=== PATIENT | female | born 1940 | race Caucasian/White ===

== ENCOUNTER → 2024-04-04 | Emergency (ER) | payer OTHER ==
[~2024-04-04] VITALS: Ht 160 cm; Wt 59.4 kg
[~2024-04-04] MED LIST: METO-357 PO; METOPROLOL SUCCINATE 25 MG TAB.SR.24H ONE; METOPROLOL TARTRATE INJ 5 MG/5 ML AMPUL ONE
[2024-04-04 16:28] LABS: BASOPHILS # (AUTO) 0.1 K/uL (0.0-0.2); BASOPHILS % (AUTO) 0.7 % (0.0-2.0); EOSINOPHILS % (AUTO) 0.2 % (0.0-6.0); HEMATOCRIT 40 % (33-45); HEMOGLOBIN 13.6 g/dL (11.5-14.8); LYMPHOCYTES # (AUTO) 0.9 K/uL (0.8-4.8); LYMPHOCYTES % (AUTO) 10.7 % (20.0-44.0); MEAN CORPUSCULAR HEMOGLOBIN 33 PG (26.0-33.0); MEAN CORPUSCULAR HGB CONC 34 g/dl (31.0-36.0); MEAN CORPUSCULAR VOLUME 97 fL (82-100); MONOCYTES # (AUTO) 0.8 K/uL (0.1-1.30); MONOCYTES % (AUTO) 9.6 % (2.0-12.0); NEUTROPHILS # (AUTO) 6.5 K/uL (1.8-8.9); NEUTROPHILS % (AUTO) 78.8 % (43.0-81.0); PLATELET COUNT (AUTO) 291 K/uL (150-450); RED BLOOD CELL COUNT(AUTO) 4.15 MIL/uL (4.0-5.2); RED CELL DISTRIBUTION WIDTH 13.3 % (11.5-15.0); WHITE BLOOD COUNT (AUTO) 8.2 K/uL (4.3-11.0)
[2024-04-04] MEDS: METOPROLOL TARTRATE INJ 5 MG/5 ML AMPUL IV ONE (16:30)
[2024-04-04] MEDS: METOPROLOL SUCCINATE 50 MG TAB.SR.24H PO SCH (16:31)
[2024-04-04 16:41] LABS: CALCIUM, SERUM 9.6 mg/dL (8.5-10.1); CARBON DIOXIDE 25 mmol/L (21-32); CHLORIDE 103 mmol/L (98-107); CREATININE 0.7 mg/dL (0.6-1.3); GLUCOSE 128 mg/dL (74-106); POTASSIUM 3.2 mmol/L (3.5-5.1); SODIUM SERUM 141 mmol/L (136-145); UREA NITROGEN, BLOOD 17 mg/dL (7-18)
[2024-04-04 18:05] VITALS: BP 132/97; TEMP 98.8; O2SAT 98
== END | disposition home or self-care (01) ==
LOC: ER 15:48
DX: I48.20 Chronic atrial fibrillation, unspecified (principal); R00.2 Palpitations; I10 Essential (primary) hypertension; Z91.148 Patient's other noncompliance with medication regimen for other reason
CPT/HCPCS: 99285; 96374; 71045; 93005 ×3; 85025; 80048; 36415; 84484; 83880; J3490

== ENCOUNTER 2025-01-18 15:24 | Emergency (ER) | payer OTHER ==
[~2025-01-18] VITALS: Ht 160 cm; Wt 59.0 kg
[~2025-01-18 15:24] MED LIST changes: -METOPROLOL SUCCINATE 25 MG TAB.SR.24H ONE; -METOPROLOL TARTRATE INJ 5 MG/5 ML AMPUL ONE
[2025-01-18 16:12] LABS: BASOPHILS # (AUTO) 0.1 K/uL (0.0-0.2); BASOPHILS % (AUTO) 0.5 % (0.0-2.0); EOSINOPHILS % (AUTO) 0.1 % (0.0-6.0); HEMATOCRIT 39 % (33-45); HEMOGLOBIN 13.5 g/dL (11.5-14.8); LYMPHOCYTES # (AUTO) 0.8 K/uL (0.8-4.8); LYMPHOCYTES % (AUTO) 6.1 % (20.0-44.0); MEAN CORPUSCULAR HEMOGLOBIN 32 PG (26.0-33.0); MEAN CORPUSCULAR HGB CONC 35 g/dl (31.0-36.0); MEAN CORPUSCULAR VOLUME 93 fL (82-100); MONOCYTES # (AUTO) 1.1 K/uL (0.1-1.30); MONOCYTES % (AUTO) 8.9 % (2.0-12.0); NEUTROPHILS # (AUTO) 10.7 K/uL (1.8-8.9); NEUTROPHILS % (AUTO) 84.4 % (43.0-81.0); PLATELET COUNT (AUTO) 440 K/uL (150-450); RED BLOOD CELL COUNT(AUTO) 4.16 MIL/uL (4.0-5.2); RED CELL DISTRIBUTION WIDTH 12.5 % (11.5-15.0); WHITE BLOOD COUNT (AUTO) 12.7 K/uL (4.3-11.0)
[2025-01-18 16:14] LABS: APPEARANCE,URINE CLEAR (CLEAR); BILIRUBIN,URINE NEGATIVE (NEGATIVE); BLOOD, URINE NEGATIVE Ery/uL (NEGATIVE); COLOR,URINE YELLOW (YELLOW); KETONES,URINE NEGATIVE (NEGATIVE); LEUKOCYTE ESTERASE ,URINE NEGATIVE (NEGATIVE); NITRITE, URINE NEGATIVE (NEGATIVE); PROTEIN,URINE NEGATIVE (NEGATIVE); UGLUCOSE NEGATIVE (NEGATIVE); UROBILINOGEN,URINE 0.2 EU/dL (0.2)
[2025-01-18 16:31] LABS: LACTIC ACID 2.1 mmol/L (0.4-2.0)
[2025-01-18 16:36] LABS: INR 1.03 (0.91-1.10); PARTIAL THROMBOPLASTIN TIME 25.6 SEC (24.3-34.3); PROTHROMBIN TIME 10.9 SECS (9.2-11.1)
[2025-01-18 16:38] LABS: ALANINE AMINOTRANSFERASE 32 U/L (12-78); ALBUMIN 3.5 g/dL (3.4-5.0); ALKALINE PHOSPHATASE 82 U/L (46-116); ASPARTATE AMINOTRANSFERASE 37 U/L (15-37); BILIRUBIN,DIRECT 0.1 mg/dL (0.0-0.2); BILIRUBIN,TOTAL 0.7 mg/dL (0.2-1.0); TOTAL PROTEIN, SERUM 7.5 g/dL (6.4-8.2)
[2025-01-18 17:02] LABS: CALCIUM, SERUM 9.4 mg/dL (8.5-10.1); CARBON DIOXIDE 23 mmol/L (21-32); CHLORIDE 89 mmol/L (98-107); CREATININE 0.7 mg/dL (0.6-1.3); GLUCOSE 173 mg/dL (74-106); POTASSIUM 3.5 mmol/L (3.5-5.1); SODIUM SERUM 124 mmol/L (136-145); UREA NITROGEN, BLOOD 12 mg/dL (7-18)
[2025-01-18 17:29] LABS: NT-PRO BNP 912 pg/mL (0-125)
[2025-01-18] MEDS: CEFTRIAXONE 1GM BAG (ER ONLY) 50 ML IV ONE (18:28)
[2025-01-18] MEDS: IV NS 0.9% 1,000 ML BAG IV ONE (18:28)
[2025-01-18] MEDS ORDERED: hydrALAZINE HCL 50 MG TABLET ONE (18:42)
[2025-01-18] MEDS: hydrALAZINE HCL 25 MG TABLET PO ONE (18:46)
[2025-01-18] MEDS: AZITHROMYCIN 500 MG in IV D5W 250 ML IV ONE (18:51)
[2025-01-18 22:30] VITALS: BP 152/77; TEMP 98.5; O2SAT 99
== END 2025-01-18 22:49 | disposition short-term general hospital (02) ==
LOC: ER 15:44
DX: R05.9 Cough, unspecified (principal); R09.81 Nasal congestion; R06.02 Shortness of breath; I10 Essential (primary) hypertension; Z79.899 Other long term (current) drug therapy; Z20.822 Contact with and (suspected) exposure to COVID-19
CPT/HCPCS: 99291; 96365; 71275; 71045; 96367; 87426; 93005; 87804 ×2; 84145; 85025; 80048; 87040 ×2; 83605 ×2; 80076; 81003; 36415; 84484; 85730; 83880; J0696; J7060; J7030; J0456